=== PATIENT | female | born 1980 ===

== ENCOUNTER 2024-12-02 16:23 | Emergency (ER) | payer OTHER ==
[~2024-12-02] VITALS: Ht 172.7 cm; Wt 90.7 kg
[2024-12-02] MEDS ORDERED: DEXAMETHASONE SODIUM PHOSPHATE 4 MG/ML VIAL IM STA (17:27)
[2024-12-02] MEDS ORDERED: KETOROLAC TROMETHAMINE 30 MG VIAL IM STA (17:27)
[2024-12-02] MEDS ORDERED: KETOROLAC TROMETHAMINE 30 MG VIAL ONE (19:04)
[2024-12-02] MEDS ORDERED: DEXAMETHASONE SODIUM PHOSPHATE 4 MG/ML VIAL ONE (19:05)
[2024-12-02] MEDS ORDERED: NORFLEX100MG PO (20:25)
[2024-12-02] MEDS ORDERED: NAPROXEN500 MG PO (20:25)
[2024-12-02 22:57] VITALS: BP 142/84; O2SAT 100
== END 2024-12-02 22:57 | disposition home or self-care (01) ==
LOC: ER 16:23
DX: S82.62XA Displaced fracture of lateral malleolus of left fibula, initial encounter for closed fracture (principal); W18.30XA Fall on same level, unspecified, initial encounter; Y93.89 Activity, other specified; Y92.89 Other specified places as the place of occurrence of the external cause; Z88.8 Allergy status to other drugs, medicaments and biological substances